=== PATIENT | female | born 1990 | race Two or more races ===

== ENCOUNTER 2024-04-04 14:04 | Outpatient (OUT) | payer OTHER, SELFPAY ==
--- NOTE | 2024-04-04 09:22 | VEINCLINIC_ITS ---
Vital Signs 04/04/24 14:41 Height 5 ft 5 in Weight 131.542 kg BMI 48.3 Respiration 16 Varicose Veins Patient is a 34 year old female in this day as a referral from Dr. Posey's office secondary to symptomatic bilateral leg varicose vein disease. Patient c/o bilateral leg pain and edema for approximately 4 months to which she started wearing bilateral leg knee high compression stockings which have decreased the pain somewhat. 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 Patient has no history of varicose vein treatments, but does have a family history of varicose veins. Ishmael Matthews MD personally performed the services described in this documentation, as scribed by Jaycob Rivera RN in my presence and it is both accurate and complete. Jaycob Matthews RN, am scribing for, and in the presence of, Dr. Ishmael Morris and in the presence of the patient. . thigh: bilateral (symptoms left > right leg), knee: bilateral, calf: bilateral, ankle: bilateral and narayan: bilateral aching, dull and tender 5 4 months Worsened in recent months: Yes standing and sitting analgesics Reports limb pain and edema History of lower extremity trauma: No Superficial thrombophlebitis: No Family history of varicose veins: yes Has patient had previous lower extremity venous surgery: No Patient has previously received the following treatment(s) for lower extremity varicose veins: Reports none Does patient have a history of : no Does patient intend to have future pregnancies: no Has patient had lower extremity venous scan with relux testing: No Support hose used: Yes Problems walking or doing physical activity: No How does it affect you: hinders job performance Do you walk much: Yes Do you stand much: Yes Review of Systems ROS Narrative Ishmael Matthews MD personally performed the services described in this documentation, as scribed by Jaycob Rivera RN in my presence and it is both accurate and complete. Jaycob Matthews RN, am scribing for, and in the presence of, Dr. Ishmael Morris and in the presence of the patient. Status of ROS 10 or more systems reviewed and unremark able except as noted in history and below Cardiovascular Reports: edema Integumentary/Breast Reports: itching, redness, skin pain, skin tenderness and changes in skin color PFSH PFSH Medical History (Updated 04/04/24 @ 11:13 by Jaycob Rivera) Cervical polyp ?N84.1 - Polyp of cervix uteri (ICD-10) Low serum vitamin D ?R79.89 - Other specified abnormal findings of blood chemistry (ICD-10) Iron deficiency ?E61.1 - Iron deficiency (ICD-10) Gastroesophageal reflux ?K21.9 - Gastro-esophageal reflux disease without esophagitis (ICD-10) Obesities, morbid ?E66.01 - Morbid (severe) obesity due to excess calories (ICD-10) Varicose veins of bilateral lower extremities with pain ?I83.813 - Varicose veins of bilateral lower extremities with pain (ICD-10) Family History (Updated 04/04/24 @ 14:53 by Jaycob Rivera) Other Family history of diabetes mellitus Family history of hypertension Pain due to varicose veins of both lower extremities Social History (Updated 04/04/24 @ 14:54 by Jaycob Rivera) Within the past year, how often did you have a drink containing alcohol: 2-4 times a month Smoking status: Never smoker Non-prescribed substance use: denies use Meds Home Medications and Allergies Home Medications ?Medication ?Instructions ?Recorded ?Confirmed ?Type ferrous sulfate 325 mg (65 mg 325 mg PO DAILY 04/04/24 04/04/24 History iron) tablet hydroxyzine pamoate 50 mg capsule 50 mg PO TID-QID PRN nausea and 04/04/24 04/04/24 History vomiting semaglutide (weight loss) 0.25 0.25 mg subcut QWEEK 04/04/24 04/04/24 History mg/0.5 mL subcutaneous pen injector (Wegovy) Allergies Allergy/AdvReac Type Severity Reaction Status Date / Time No Known Drug Allergies Allergy Verified 04/04/24 14:55 Exam Narrative Exam Narrative: IIshmael MD personally performed the services described in this documentation, as scribed by Jaycob Rivera RN in my presence and it is both accurate and complete. IJaycob RN, am scribing for, and in the presence of, Dr. Ishmael Morris and in the presence of the patient. Constitutional Documenting provider has reviewed patient's vital signs: yes Common normals: oriented x3 Nutritional appearance: overweight Cardio Peripheral pulses: posterior tibial pulses present and dorsalis pedis pulses present Extremity Common normals: normal capillary refill General: calf tenderness and edema Right lower extremity: lower leg Right lower leg: inspection and palpation Left lower extremity: lower leg Left lower leg: inspection and palpation Neuro Common normals: oriented x3 Results Imaging Venous US: Radiologist's impression: Bilateral leg reflux u/s reveals bilateral GSV and AASV venous insufficiency with associated dilation along with bilateral leg branch saphenous truncal tributary veins. Ishmael Matthews MD personally performed the services described in this documentation, as scribed by Jaycob Rivera RN in my presence and it is both accurate and complete. Jaycob Matthews RN, am scribing for, and in the presence of, Dr. Ishmael Morris and in the presence of the patient. Assessment and Plan Assessment and Plan (1) Varicose veins of bilateral lower extremities with pain: Plan Paient is to continue use of bilateral leg knee high compression stockings, rest, and elevation along with exercise. Patient to return for EVLT of bilateral GSV, AASV, followed by bilateral leg microfoam chemical ablation and sclerotherapy. Ishmael Matthews MD personally performed the services described in this documentation, as scribed by Jaycob Rivera RN in my presence and it is both accurate and complete. Jaycob Matthews RN, am scribing for, and in the presence of, Dr. Ishmael Morris and in the presence of the patient.
--- NOTE | 2024-04-04 09:31 | P.DS_ITS ---
Discharge Plan Discharge Disposition: Home, Self-Care Plan of Treatment: EVLT of bialteral GSV and AASV followed by microfoam chemical ablation bilateral legs then sclerotherapy Print Language: [place] Discharge Date/Time: 04/04/24 15:47
--- NOTE | 2024-04-04 14:07 | VEIN_ITS ---
Patient Name: KYLER COOMBS MR#: [id number] : 1990 Exam Date: 04/04/2024 Ordering Doctor: DR MORGAN KARIMI M.D. RADIOLOGY REPORT PROCEDURE: [facility] - OFFICE VISIT INITIAL COMPARISON: None. PROGRESS NOTES: [age] year old female who presents with a 4 month history of bilateral leg pain, aching, tenderness, swelling, and dilated bulging veins. The patient's left leg symptoms are worse than the right. There has been a progression of symptoms since that time. This increases with prolonged leg dependency. The patient describes an improvement with rest and elevation. The patient denies any signs and symptoms to suggest arterial ischemia. The patient describes a family history varicose veins. The patient has drinking and smoking history of occasional alcohol consumption; no tobacco use. Patient has a past medical history significant for obesity, varicose veins, gastroesophageal reflux. The patient denies a history of deep venous thrombus or pulmonary embolus. See separate history and physical for medication list. No prior treatment for varicose or spider veins. Four months use of compression stockings. After review of nurse notes, history and physical exam I discussed at length the pathophysiology of venous hypertension and possible treatments, therapies and strategies available. We discussed at length the importance of elevating the lower extremities above the level of the heart, increased physical activity and compression stocking use. Ultrasound venous reflux study performed today was discussed at length with the patient. The report demonstrates abnormally dilated and incompetent in bilateral great saphenous and anterior accessory saphenous veins with associated branch saphenous varicosities (marked on left).. PHYSICAL EXAM: The right leg demonstrates several varicosities, a few scattered spider veins, no ulceration, mild edema, no skin discoloration. The left leg demonstrates several varicosities, a few scattered spider veins, no ulceration, mild edema, no skin discoloration. Both thighs, legs and feet were symmetrically warm to the touch. Good posterior tibial and dorsalis pedis pulses were present bilaterally. VEIN/[facility] EST Comprehensive IMPRESSION: 1. Bilateral lower extremity venous insufficiency 2. Bilateral lower extremity varicose veins 3. Bilateral lower extremity subcutaneous edema 4. No flow significant arterial disease 5. CEAP: C3, EC, AP, NE PLAN: 1. Continued use of compression stockings 2. Elevated legs and increased physical activity symptomatic relief 3. Endovenous laser ablation of left great saphenous, right great saphenous, left anterior accessory saphenous, and right anterior accessory saphenous veins. 4. Microfoam chemical ablation of incompetent branch saphenous varicosities bilaterally. 5. Sclerotherapy of bilateral lower extremity spider veins. Nurse notes, history and physical were reviewed and confirmed, see attached forms. The nurse was present throughout the physical exam and consultation Dictated by: Morgan Karimi M.D. on 04/04/2024 at 16:03 Approved by: Morgan Karimi M.D. on 04/04/2024 at 16:10
--- NOTE | 2024-04-04 14:07 | VEIN_ITS ---
Patient Name: KYLER COOMBS MR#: [id number] : 1990 Exam Date: 04/04/2024 Ordering Doctor: DR MORGAN KARIMI M.D. RADIOLOGY REPORT PROCEDURE: [facility] EXT VENOUS REFLUX SILVIA LMTD COMPARISON: None. INDICATIONS: I83.813 Bilateral painful varicose veins TECHNIQUE: Duplex imaging of the lower extremity to assess the deep and superficial venous system for the presence of deep or superficial venous incompetence and to document the location and severity of disease. The study includes evaluation of the great saphenous vein (GSV), anterior accessory saphenous vein (AASV) and small saphenous vein (SSV). Patient scanned in reverse Trendelenburg and standing. FINDINGS: RIGHT LOWER EXTREMITY: Saphenofemoral Junction Reflux: Yes 8.8mm 4.9 sec GSV: Diam (mm) Reflux/ Time (sec) Proximal Thigh 8.0 Yes 2.8 Mid Thigh 7.3 Yes 0.8 Distal Thigh 5.3 Yes 3.2 Prox Calf 3.7 Yes 0.5 Mid Calf 3.4 Yes 0.5 Saphenopopliteal Junction Reflux: 3.4mm No SSV: Proximal Calf 2.5 Yes 0.3 Mid Calf 2.5 No AASV: Proximal Thigh 7.1 Yes 3.2 Mid Thigh 8.1 Yes 1.7 Distal Thigh Thrombi: No acute or chronic thrombus. Compressibility: Normal. Flow: Borderline deep venous reflux. Preforator: Dist medial lower leg 4.4 mm with 1.0s reflux. Mid posterior calf 6.1 mm with 1.0s reflux. Tech Note: Tortuous GSV mid thigh. Incompetent varicose vein distal medial thigh measures 8.4 mm with 2.2s reflux. Varicose vein mid medial lower leg measures 8.4 mm with 3.7s reflux. Varicose vein proximal anterior lower leg measures 4.0 mm with 1.2s reflux. Varicose vein distal anterior thigh measures 5.0 mm with 1.5s reflux. LEFT LOWER EXTREMITY: Saphenofemoral Junction Reflux: Yes 7.7 mm 4.0 sec GSV: Diam (mm) Reflux/Time (sec) Proximal Thigh 11.8 Yes 3.2 Mid Thigh 7.0 Yes 2.3 Distal Thigh 7.1 Yes 3.3 Prox Calf 7.0 Yes 2.7 Mid Calf 7.7 Yes 2.3 Saphenopopliteal Junction Relux: 4.9 mm Yes 0.7 SSV: Proximal Calf 3.8 Yes 0.4 Mid Calf 3.0 No AASV: Proximal Thigh 5.7 Yes 3.1 Mid Thigh 4.3 Yes 1.2 Distal Thigh Thrombi: No acute or chronic thrombus. Compressibility: Normal. Flow: Mild deep venous reflux. Is Analyst: Distal medial lower leg 7.3 mm with 2.7s reflux. Tech Note: Incompetent varicose vein mid medial lower leg measures 6.8 mm with 1.3s reflux. Varicose vein proximal medial lower leg measures 8.2 mm with 0.9s reflux. Varicose vein mid anterior thigh off AASV measures 6.0mm with 0.6s reflux. Varicose vein distal anterior thigh off AASV measures 4.0 mm with 2.0s reflux. CONCLUSION: 1. Abnormally dilated and incompetent bilateral great saphenous and anterior accessory saphenous veins, and associated incompetent branch saphenous varicosities. Dictated by: Morgan Karimi M.D. on 04/04/2024 at 15:29 Approved by: Morgan Karimi M.D. on 04/04/2024 at 16:03
[2024-04-04 14:41] VITALS: BMI 48.3
== END 2024-04-04 15:47 | disposition home or self-care (01) ==
PROVIDERS: Visit Provider Radiology Diagnostic Radiology
DX: I83.813 Varicose veins of bilateral lower extremities with pain (principal)
CPT/HCPCS: 93970; G0463